=== PATIENT | male | born 1990 | race Caucasian/White ===

== ENCOUNTER 2017-01-03 07:33 | Emergency (ER) | payer OTHER, BC | END 2017-01-03 08:59 | disposition home or self-care (01) | LOC: ER 07:33 | PROC: 0HQGXZZ Repair Left Hand Skin, External Approach (ICD-10-PCS; principal; 2017-01-03) | DX: S61.412A Laceration without foreign body of left hand, initial encounter (principal); F17.200 Nicotine dependence, unspecified, uncomplicated; W26.0XXA Contact with knife, initial encounter | CPT/HCPCS: 73130-LT; 99283; A9270-GY ==